=== PATIENT | male | born 1925 | race Caucasian/White ===

== ENCOUNTER → 2016-10-13 | Outpatient (CLI) | payer MEDICARE ==
[2016-07-15 08:07] VITALS: BP 182/64
[~2016-10-13] MED LIST: ALLO100T PO; ASPI-482 PO; ASPI81TA2 PO; CLON0.1T PO; CLON0.3T PO; DOCU-27 PO; DOCU50CA9 PO; FERR159T3 PO; FERR325T20 PO; FERR325T31 PO; FURO-68 PO; FURO40TA4 PO; HYDR-971 PO; LISI10TA2 PO; LISI40TA PO; NIFE10CA2 PO; NIFE30TA2 PO; NIFE30TA7 PO; NIFE60TA PO; OXYC-323 PO; PANT40GR PO; SODI650T PO; TERA10CA3 PO; WARF3TAB7 PO
--- NOTE | 2016-10-14 08:40 | RAD ---
PROCEDURE MRI lumbar spine without contrast. HISTORY Chronic low back pain and worsening right leg weakness. Prior laminectomy. TECHNIQUE Sagittal T1, sagittal T2, sagittal STIR, axial T1, and axial T2 sequences are provided. There is mild motion degradation. COMPARISON August 12, 2015. FINDINGS There is 4 millimeters of anterolisthesis at L4-L5 and retrolisthesis at L5-S1. There is endplate edema at L3-L4 and L5-S1 which appears degenerative. There is no worrisome marrow lesion. There is diffuse disc desiccation. Narrowing of disc height is greatest from L3-L4 through L5-S1. The conus medullaris is normal in signal intensity and in position. Subcutaneous edema is noted. Probable small cyst in the lower pole of the left kidney is stable. Cholelithiasis is noted. The numbering system assumes 5 lumbar type vertebral bodies. Findings by individual level are as follows: L1-L2: Minimal disc bulge and facet hypertrophy are noted with minimal foraminal narrowing. There is an annular fissure anteriorly. Midline AP diameter of the thecal sac is 13 millimeters. L2-L3: Disc bulge and facet hypertrophy are noted. There is mild canal stenosis and lateral recess narrowing. Midline AP diameter of the thecal sac is narrowed to 10 millimeters. Foraminal narrowing is mild. L3-L4 disc osteophyte complex is noted. Patient has underwent bilateral partial laminectomies and probably stripping of ligamentum flavum. There is no canal stenosis, midline AP diameter of the thecal sac 15 millimeters. Foraminal narrowing is moderate. L4-L5: Disc osteophyte complex and moderate to severe facet hypertrophy are noted. There is also mild ligamentum flavum hypertrophy. There is mild lateral recess narrowing bilaterally. There is mild right and moderate left foraminal narrowing. Lateral recess narrowing is greater on the left, could explain a left L5 radiculopathy. Midline AP diameter of the thecal sac is 15 millimeters. L5-S1: Disc osteophyte complex and minimal facet hypertrophy are noted with mild foraminal narrowing. Midline AP diameter of the thecal sac is 17 millimeters. Overall, findings are relatively stable, with the exception of the level of prior surgery. IMPRESSION - Postsurgical changes noted at L3-L4 with decrease in the degree of canal stenosis compared to prior exam. 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 Electronically signed by: Ronald Qureshi MD (Oct 14, 2016 08:38:28)
== END | disposition home or self-care (01) ==
LOC: MRI 14:58
PROVIDERS: ATTEND Family Medicine
DX: M54.5 Low back pain (principal)
CPT/HCPCS: 72148